=== PATIENT | female | born 1950 | race Two or more races ===

== ENCOUNTER 2017-05-01 14:53 | Outpatient (CLI) | payer OTHER ==
[~2017-05-01] VITALS: Ht 152.4 cm; Wt 53.0 kg
[2017-05-01 14:57] VITALS: BP 142/68; PULSE 82; RESP 18; Ht 152.4 cm; Wt 53.0 kg
[2017-05-01] MEDS ORDERED: ASPI-664 PO (15:20)
[2017-05-01] MEDS ORDERED: MTF1000T PO (15:20)
[2017-05-01] MEDS ORDERED: ATOR80TA75 PO (15:20)
[2017-05-01] MEDS ORDERED: PANT40TA4 PO (15:20)
[2017-05-01] MEDS ORDERED: LANT3I SC (15:20)
--- NOTE | 2017-05-01 15:52 | PN ---
Date/Time of Note Date/Time of Note DATE: 05/01/17 TIME: 15:44 Outpatient Progress Note Chief Complaint Abdominal pain/chest pain//diabetes HPI Abdominal pain/patient has slight abdominal discomfort, no nausea or vomiting, pain has improved significantly, patient on medication, Chest pain/patient was recently admitted with a chest pain, especially on deep breathing, patient pain has improved significantly, at present no pain, no cough , no fever chill, no chest tightness, Diabetes/no polyps or polyuria hypoglycemia, blood sugar under control, Review of Systems Const: No Fever, no chills, no Wt. loss, no Fatigue, normal appetite, no diaphoresis. Eyes: No pain, no discharge, no redness, no visual change, no foreign body. ENT: No pain, no bleeding, no congestion, no sore throat, no dysphagia, no discharge or rhinitis. Lymph: No adenopathy, no tender nodes, no lymphedema. Resp: No SOB, no cough, no sputum, no wheezing, no chest pain. CV: No chest pain, no palpitaions, no FELIX, no PND, no edema. GI: Normal appetite, mild epigastric bdominal pain, no nausea, no vomiting, no diarrhea, no blood, no constipation. : No frequency, no urgency, no dysuria, no hematuria, no flank pain, no discharge, no bleeding, Musc: Slight back pain, no neck pain, no knee pain, no restricted ROM. Skin: No rash, no skin lesions, no erythema, no laceration, no bruising, no pruritus. Neuro: No CHERY, no dizziness, no syncope, no seizure, no focal-weakness. Endo: No polyuria, no polydypsia, no dry-skin, no temp-intolerance. Psych: No hallucinations, no depression, no anxiety, no suicidal ideation. Ext: No edema, no pain, no ulcer, no weakness. Physical Exam Vital Signs Date Time Temp Pulse Resp B/P Pulse Ox O2 Delivery O2 Flow Rate FiO2 05/01/17 14:57 97.8 82 18 142/68 96 Room Air General Appearance: A 66 year-old female who appears well-developed, well- nourished, in no acute distress. HEENT: Head normocephalic, atraumatic. Pupils equal, round, reactive to light and accommodate. Sclerae are no jaundice. Nasal turbinates pink without erythema or nasal discharge. Mucous membranes pink and moist without lesions. Oropharynx clear without any exudate or discharge. NECK: Supple. Trachea midline, No thyromegaly, No cervical lymphadenopathy, No mass, No carotid bruits, No JVD, Carotid pulses 2+ bilaterally. PULMONARY: Clear to auscultaion bilaterally, No retractions, Chest expansion symmetric bilaterally, no rales, no ronchi, no dulness on percussion. CARDIAC: Normal SI and S2, Regular rate and rythm, no murmur, gallop, or rub. GASTROINTESTINAL: Abdomen is soft, non-tender, Non Rigid, No distention, Positive bowel sounds x4 quadrants, Liver normal. SKIN: Warm, dry, no rash, no bruise, no echmosis. EXTREMITIES: Bilateral lower extremities normal, no edema, no phlabitus, pulse palpable, no contracture. MUSCULOSKELETAL: Spine Normal, Non-tender, Normal range of motion, No swelling, no deformity, no clubbing, or cyanosis, the patient has no edema to bilateral lower extremities, dorsalis pedis pulses palpable bilaterally. NEUROLOGIC: The patient is awake, alert, oriented, responding to yes/no questions appropriately, moving all extremities, cranial nerve intact, normal strenght, normal power, normal coordination, normal gait. Allergies Coded Allergies: No Known Drug Allergies (Verified Allergy, Unknown, 05/01/17) PMH Diabetes Social Hx No smoking no drinking, Family Hx Noncontributory Assessment/Plan Impression Abdominal pain improved Chest pain improved Diabetes controlled Plan Patient education done about diabetes, patient cardiac work was negative, patient advised to increase activity slowly, Control the blood sugar, control the weight, control the blood pressure, Patient advised to follow with the primary care physician, Medications Home Meds Reported Medications Aspirin (Low Dose Aspirin) 81 Mg Tablet.dr, 81 MG PO DAILY, #30 TAB 05/01/17 Metformin* (Glucophage*) 1,000 Mg Tablet, 1000 MG PO BID, #60 TAB 05/01/17 Insulin Glargine* (Lantus*) 100 Unit/Ml Soln, 10 UNIT SC QHS, #1 VIAL 05/01/17 Atorvastatin* (Atorvastatin*) 80 Mg Tablet, 80 MG PO QHS, #30 TAB 05/01/17 Pantoprazole* (Pantoprazole*) 40 Mg Tablet.dr, 40 MG PO AC BREAKFAST, TAB 05/01/17 PAULETTE LI MD May 01, 2017 15:52
== END 2017-05-01 17:00 | disposition home or self-care (01) ==
LOC: DCC 14:53
PROVIDERS: ATTEND Internal Medicine
DX: E11.9 Type 2 diabetes mellitus without complications (principal); R07.9 Chest pain, unspecified; R10.9 Unspecified abdominal pain; Z79.82 Long term (current) use of aspirin; Z79.84 Long term (current) use of oral hypoglycemic drugs

== ENCOUNTER 2017-05-18 12:08 | Outpatient (CLI) | payer OTHER ==
[~2017-05-18] VITALS: Ht 152.4 cm; Wt 52.7 kg
[~2017-05-18 12:08] MED LIST: ASPI-664 PO; ATOR80TA75 PO; LANT3I SC; MTF1000T PO; PANT40TA4 PO
[2017-05-18 12:20] VITALS: BP 158/70; PULSE 70; RESP 18; Ht 152.4 cm; Wt 52.7 kg
--- NOTE | 2017-05-18 12:41 | PN ---
Date/Time of Note Date/Time of Note DATE: 05/18/17 TIME: 12:37 Outpatient Progress Note Chief Complaint Diabetes/hypertension/PUD HPI Diabetes/no polydipsia polyuria hypoglycemia, gastroparesis, no impaired vision , patient will occasionally feel right side of face warm, no rash, no itching, no pain, Hypertension/no headache or dizziness, patient blood pressure slightly elevated today, according the patient patient blood pressure has been fairly stable, patient just walked in, no nausea vomiting, no local focal weakness, no impaired vision, no blood in the urine, PUD/no nausea or vomiting, hematemesis melena, Review of Systems Const: No Fever, no chills, no Wt. loss, no Fatigue, normal appetite, no diaphoresis. Eyes: No pain, no discharge, no redness, no visual change, no foreign body. ENT: No pain, no bleeding, no congestion, no sore throat, no dysphagia, no discharge or rhinitis. Lymph: No adenopathy, no tender nodes, no lymphedema. Resp: No SOB, no cough, no sputum, no wheezing, no chest pain. CV: No chest pain, no palpitaions, no FELIX, no PND, no edema. GI: Normal appetite, no pain, no nausea, no vomiting, no diarrhea, no blood, no constipation. : No frequency, no urgency, no dysuria, no hematuria, no flank pain, no discharge, no bleeding. Musc: No bone/joint pain, no back pain, no neck pain, no knee pain, no restricted ROM. Skin: No rash, no skin lesions, no erythema, no laceration, no bruising, no pruritus. Neuro: No CHERY, no dizziness, no syncope, no seizure, no focal-weakness. Endo: No polyuria, no polydypsia, no dry-skin, no temp-intolerance. Psych: No hallucinations, no depression, no anxiety, no suicidal ideation. Ext: No edema, no pain, no ulcer, no weakness. Physical Exam Vital Signs Date Time Temp Pulse Resp B/P Pulse Ox O2 Delivery O2 Flow Rate FiO2 05/18/17 12:20 98.2 70 18 158/70 96 Room Air General Appearance: A 66 year-old female who appears well-developed, well- nourished, in no acute distress. HEENT: Head normocephalic, atraumatic. Pupils equal, round, reactive to light and accommodate. Sclerae are no jaundice. Nasal turbinates pink without erythema or nasal discharge. Mucous membranes pink and moist without lesions. Oropharynx clear without any exudate or discharge. NECK: Supple. Trachea midline, No thyromegaly, No cervical lymphadenopathy, No mass, No carotid bruits, No JVD, Carotid pulses 2+ bilaterally. PULMONARY: Clear to auscultaion bilaterally, No retractions, Chest expansion symmetric bilaterally, no rales, no ronchi, no dulness on percussion. CARDIAC: Normal SI and S2, Regular rate and rythm, no murmur, gallop, or rub. GASTROINTESTINAL: Abdomen is soft, non-tender, Non Rigid, No distention, Positive bowel sounds x4 quadrants, Liver normal. SKIN: Warm, dry, no rash, no bruise, no echmosis. EXTREMITIES: Bilateral lower extremities normal, no edema, no phlabitus, pulse palpable, no contracture. MUSCULOSKELETAL: Spine Normal, Non-tender, Normal range of motion, No swelling, no deformity, no clubbing, or cyanosis, the patient has no edema to bilateral lower extremities, dorsalis pedis pulses palpable bilaterally. NEUROLOGIC: The patient is awake, alert, oriented, responding to yes/no questions appropriately, moving all extremities, cranial nerve intact, normal strenght, normal power, normal coordination, normal gait. Allergies Coded Allergies: No Known Drug Allergies (Verified Allergy, Unknown, 05/01/17) PMH Diabetes/hypertension/PUD/history of chest pain/history of abdominal pain, Social Hx No change Family Hx No change Assessment/Plan Impression Diabetes/hypertension/PUD Plan Patient education done about diabetes hypertension, patient advised to control her blood sugar and blood pressure, Patient chest pain and abdominal pain completely disappeared, patient does not have any symptoms at present, patient felt comfortable, Patient encouraged to follow with the primary care physician, patient has all medical supply, and medication supply, patient blood sugar was 66 this morning, patient advised to follow with the primary care physician for blood sugar and lipid panel and hemoglobin A1c, Medications Home Meds Reported Medications Aspirin (Low Dose Aspirin) 81 Mg Tablet.dr, 81 MG PO DAILY, #30 TAB 05/01/17 Metformin* (Glucophage*) 1,000 Mg Tablet, 1000 MG PO BID, #60 TAB 05/01/17 Insulin Glargine* (Lantus*) 100 Unit/Ml Soln, 10 UNIT SC QHS, #1 VIAL 05/01/17 Atorvastatin* (Atorvastatin*) 80 Mg Tablet, 80 MG PO QHS, #30 TAB 05/01/17 Pantoprazole* (Pantoprazole*) 40 Mg Tablet., 40 MG PO AC BREAKFAST, TAB 05/01/17 PAULETTE LI MD May 18, 2017 12:41
== END 2017-05-18 16:45 | disposition home or self-care (01) ==
LOC: DCC 12:08
PROVIDERS: ATTEND Internal Medicine
DX: E11.9 Type 2 diabetes mellitus without complications (principal); I10 Essential (primary) hypertension; K27.9 Peptic ulcer, site unspecified, unspecified as acute or chronic, without hemorrhage or perforation